=== PATIENT | male | born 1965 | race African-American/Black ===

== ENCOUNTER 2024-09-28 13:19 | Inpatient (IN) | payer OTHER ==
[2024-09-28 13:50] VITALS: BMI 19.5
[2024-09-28] MEDS ORDERED: NALOXONE (NARCAN) HCL 4 MG/0.1 ML SPRAY NS PRN (13:59)
[2024-09-28] MEDS ORDERED: LOPERAMIDE HCL 2 MG CAPSULE PO PRN (13:59)
[2024-09-28] MEDS ORDERED: IBUPROFEN 400 MG TABLET (FP) PO PRN (13:59)
[2024-09-28] MEDS ORDERED: guaiFENesin 600 MG TABLET.ER (FP) PO PRN (13:59)
[2024-09-28] MEDS ORDERED: MAGNESIUM HYDROX 2400MG/30ML ORAL SUSPENSION 30 ML CUP PO PRN (13:59)
[2024-09-28] MEDS ORDERED: DICYCLOMINE HCL 10 MG CAPSULE PO PRN (13:59)
[2024-09-28] MEDS ORDERED: diazePAM 5 MG TABLET PO PRN (13:59)
[2024-09-28] MEDS ORDERED: POLYETHYLENE GLYCOL (HEALTHYLAX) 3350 17 GM PACKET PO PRN (13:59)
[2024-09-28] MEDS ORDERED: ACETAMINOPHEN 325 MG TABLET (FP) PO PRN (13:59)
[2024-09-28] MEDS ORDERED: MAG HYDROX/AL HYDROX/SIMETH 30 ML UNIT-DOSE CUP PO PRN (13:59)
[2024-09-28] MEDS ORDERED: BISMUTH SUBSALICYLATE 262 MG/15 ML BTL PO PRN (13:59)
[2024-09-28] MEDS: NICOTINE 14 MG/24 HOURS TOPICAL PATCH TD SCH (14:54)
[2024-09-28] MEDS ORDERED: PRENATAL VITAMINS W/ FOLIC ACID TABLET (FP) PO ONE (14:55)
[2024-09-28] MEDS: PRENATAL VITAMINS W/ FOLIC ACID TABLET (FP) PO SCH (14:58)
[2024-09-28] MEDS: hydrOXYzine PAMOATE 25 MG CAPSULE (FP) PO PRN (15:55)
[2024-09-28] MEDS: METHOCARBAMOL 500 MG TABLET PO PRN (15:55)
[2024-09-28] MEDS: BENZONATATE 200 MG CAPSULE PO PRN (17:47)
[2024-09-28] MEDS: diazePAM 5 MG TABLET PO SCH (17:47)
[2024-09-28] MEDS: IBUPROFEN 600 MG TABLET (FP) PO PRN (17:48)
[2024-09-28] MEDS: MELATONIN 5 MG TABLETS PO SCH (22:53)
[2024-09-28] MEDS: THIAMINE 100 MG TABLET PO SCH (22:53)
[2024-09-28] MEDS: GABAPENTIN 300 MG CAPSULE PO SCH (22:53)
[2024-09-28] MEDS: DORZOLAMIDE 2% HCL OPHTHALMIC SOLUTION 10 ML BOTTLE OU SCH (22:54)
[2024-09-28] MEDS: BRIMONIDINE TARTRATE 0.2% OPHTHALMIC 5 ML BOTTLE OU SCH (22:54)
[2024-09-28] MEDS: LATANOPROST 0.005% OPHTH SOLN 2.5ML BOTTLE OU SCH (22:54)
[2024-09-28] MEDS: LIDOCAINE PATCH REMOVAL MC SCH (22:54)
[2024-09-29] MEDS: BENZOCAINE/MENTHOL (CHLORASEPTIC ) LOZENGE MM PRN (01:57)
[2024-09-29] MEDS: BICTEGRAV/EMTRICIT/TENOFOV (BIKTARVY) 50-200-25 MG TABLET PO SCH (07:12)
[2024-09-29 09:40] LABS: HEMATOCRIT 36.8 % (35.4-49); HEMOGLOBIN 12.4 GM/dL (11.7-16.9); MCH 32.5 pg (25.7-33.7); MCHC 33.6 g/dl (32.0-35.9); MEAN PLT VOLUME 8.4 fl (7.5-11.1); PLATELET COUNT 188 10^3/uL (134-434); RDW 15.1 % (11.9-15.9); WHITE BLOOD COUNT 3.9 K/mm3 (4.0-10.0)
[2024-09-29 09:42] LABS: CHLORIDE 111 mmol/L (98-107); POTASSIUM 4.1 mmol/L (3.5-5.1); SODIUM 143 mmol/L (136-145)
[2024-09-29 10:08] LABS: ALBUMIN 2.3 g/dl (3.4-5.0); ANION GAP 5 mmol/L (4-13); BLOOD UREA NITROGEN 19.8 mg/dL (7-18); CO2 27 mmol/L (21-32); GLUCOSE,RANDOM 65 mg/dL (74-106)
[2024-09-29 10:10] LABS: ALK PHOS 57 U/L (45-117)
[2024-09-29 10:11] LABS: SGPT/ALT 64 U/L (13-61)
[2024-09-29 10:12] LABS: SGOT/AST 56 U/L (15-37)
[2024-09-29 10:13] LABS: BILIRUBIN,TOTAL 0.3 mg/dL (0.2-1); TOT PROT 6.9 g/dl (6.4-8.2)
[2024-09-29] MEDS: LIDOCAINE 5% TOPICAL PATCH TP SCH (10:29)
[2024-09-30] MEDS: diazePAM 5 MG TABLET PO SCH (06:22)
[2024-10-01] MEDS: diazePAM 5 MG TABLET PO SCH (05:33)
[2024-10-01] MEDS: NALOXONE (NYS OPIOID OVERDOSE PROGRAM) 4 MG/0.1 ML SPRAY NS SCH (10:20)
[2024-10-01] MEDS: ONDANSETRON *ODT* 4 MG TABLET SL PRN (17:29)
[2024-10-02] MEDS: diazePAM 5 MG TABLET PO ONE (05:59)
[2024-10-02 09:12] VITALS: BP 113/65; PULSE 79; RESP 17; TEMP 98.6
== END 2024-10-02 11:10 | disposition other institution (70) | DRG 774 ==
LOC: YASAS 13:19 → Y6N 14:18
PROVIDERS: ADMIT Allergy & Immunology; ATTEND Surgery
PROC: HZ2ZZZZ Detoxification Services for Substance Abuse Treatment (ICD-10-PCS; principal; 2024-09-28)
DX: F10.230 Alcohol dependence with withdrawal, uncomplicated (principal); F14.20 Cocaine dependence, uncomplicated; F17.210 Nicotine dependence, cigarettes, uncomplicated; B20 Human immunodeficiency virus [HIV] disease; G99.0 Autonomic neuropathy in diseases classified elsewhere; H40.10X0 Unspecified open-angle glaucoma, stage unspecified; R63.6 Underweight; Z68.1 Body mass index [BMI] 19.9 or less, adult; Z20.2 Contact with and (suspected) exposure to infections with a predominantly sexual mode of transmission; Z86.11 Personal history of tuberculosis; Z79.899 Other long term (current) drug therapy
CPT/HCPCS: 36415; 71046-TC-FY; 80053; 80305; 80307; 85027; 86593; 86780; 93005; 93010; Q0162